=== PATIENT | female | born 1995 | race Caucasian/White ===

== ENCOUNTER 2018-07-11 12:34 | Emergency (ER) | payer OTHER ==
[~2018-07-11] VITALS: Ht 137.2 cm; Wt 36.7 kg
[2018-07-11] MEDS ORDERED: ZANTAC 7575 MG (13:21)
== END 2018-07-11 16:39 | disposition home or self-care (01) ==
LOC: ER 12:34
DX: O20.0 Threatened abortion (principal)

== ENCOUNTER 2018-11-22 08:02 | Emergency (ER) | payer OTHER ==
[~2018-11-22] VITALS: Ht 121.9 cm; Wt 39.9 kg
[~2018-11-22 08:02] MED LIST: ZANTAC 7575 MG
== END 2018-11-22 12:28 | disposition home or self-care (01) ==
LOC: ER 08:02
DX: B34.9 Viral infection, unspecified (principal); N39.0 Urinary tract infection, site not specified

== ENCOUNTER 2019-01-23 13:47 | Outpatient (CLI) | payer OTHER | END 2019-01-23 18:34 | disposition home or self-care (01) | LOC: OBS/DEL 13:47 | DX: O47.1 False labor at or after 37 completed weeks of gestation (principal); Z34.03 Encounter for supervision of normal first pregnancy, third trimester ==

== ENCOUNTER 2019-02-02 09:19 | Outpatient (CLI) | payer OTHER | END 2019-02-02 10:24 | disposition home or self-care (01) | LOC: NST 09:19 | DX: Z34.83 Encounter for supervision of other normal pregnancy, third trimester (principal) ==

== ENCOUNTER 2019-02-06 05:12 | Inpatient (IN) | payer OTHER ==
[~2019-02-06] VITALS: Ht 149.9 cm; Wt 42.2 kg
[2019-02-06] MEDS ORDERED: PRENATAL 19 TA1 EAC1 PO (07:04)
[2019-02-06] MEDS ORDERED: SYNTHROID100 MCG PO (23:04)
[2019-02-06] MEDS ORDERED: VITAMIN D400 UNI2 PO (23:05)
== END 2019-02-08 15:09 | disposition home or self-care (01) | DRG 807 ==
LOC: OB/GYN 05:12 → LDR 05:12 → OB/GYN 02-07 01:30
PROVIDERS: ADMIT Obstetrics & Gynecology
PROC: 10E0XZZ Delivery of Products of Conception, External Approach (ICD-10-PCS; principal; 2019-02-07)
PROC: 4A0HXFZ Measurement of Products of Conception, Cardiac Rhythm, External Approach (ICD-10-PCS; 2019-02-07)
DX: O41.03X0 Oligohydramnios, third trimester, not applicable or unspecified (principal); Z37.0 Single live birth; O36.5930 Maternal care for other known or suspected poor fetal growth, third trimester, not applicable or unspecified; O69.81X0 Labor and delivery complicated by cord around neck, without compression, not applicable or unspecified; Z3A.39 39 weeks gestation of pregnancy

== ENCOUNTER 2021-10-10 19:56 | Emergency (ER) | payer OTHER ==
[~2021-10-10] VITALS: Ht 149.9 cm; Wt 38.6 kg
[~2021-10-10 19:56] MED LIST changes: +PRENATAL 19 TA1 EAC1 PO; +SYNTHROID100 MCG PO; +VITAMIN D400 UNI2 PO
[2021-10-11] MEDS ORDERED: KETO10TA2 PO (03:05)
== END 2021-10-11 03:21 ==
LOC: ER 19:56
DX: N83.201 Unspecified ovarian cyst, right side (principal)

== ENCOUNTER 2022-01-27 16:37 | Emergency (ER) | payer OTHER ==
[~2022-01-27] VITALS: Ht 149.9 cm; Wt 36.3 kg
[~2022-01-27 16:37] MED LIST changes: +KETO10TA2 PO
[2022-01-27] MEDS ORDERED: ZANTAC (17:32)
== END 2022-01-27 22:32 | disposition home or self-care (01) ==
LOC: ER 16:37
DX: K52.89 Other specified noninfective gastroenteritis and colitis (principal)

== ENCOUNTER 2022-05-26 08:39 | Emergency (ER) | payer OTHER ==
[~2022-05-26] VITALS: Ht 149.9 cm; Wt 36.3 kg
[~2022-05-26 08:39] MED LIST changes: +DICY20TA; +OMEPRAZOLE20 MG PO; +PEPCID20 MG PO; +ZANTAC
== END 2022-05-26 13:13 ==
LOC: ER 08:39
DX: U07.1 COVID-19 (principal)

== ENCOUNTER 2022-08-06 11:39 | Emergency (ER) | payer OTHER ==
[~2022-08-06] VITALS: Ht 149.9 cm; Wt 39.0 kg
== END 2022-08-06 16:28 | disposition home or self-care (01) ==
LOC: ER 11:39
DX: O20.9 Hemorrhage in early pregnancy, unspecified (principal); Z3A.12 12 weeks gestation of pregnancy; R10.2 Pelvic and perineal pain

== ENCOUNTER 2022-10-23 20:13 | Emergency (ER) | payer OTHER ==
[~2022-10-23] VITALS: Ht 149.9 cm; Wt 39.5 kg
== END 2022-10-24 00:10 | disposition home or self-care (01) ==
LOC: ER 20:13
DX: N83.292 Other ovarian cyst, left side (principal); R10.2 Pelvic and perineal pain

== ENCOUNTER 2023-02-14 20:36 | Emergency (ER) | payer OTHER ==
[~2023-02-14] VITALS: Ht 149.9 cm; Wt 39.0 kg
== END 2023-02-15 00:43 | disposition home or self-care (01) ==
LOC: ER 20:36
DX: R30.0 Dysuria (principal)

== ENCOUNTER 2023-04-18 10:00 | Emergency (ER) | payer OTHER ==
[~2023-04-18] VITALS: Ht 149.9 cm; Wt 39.0 kg
== END 2023-04-18 11:43 | disposition home or self-care (01) ==
LOC: ER 10:00
DX: R53.81 Other malaise (principal)

== ENCOUNTER 2023-05-27 10:49 | Emergency (ER) | payer OTHER ==
[~2023-05-27] VITALS: Ht 157.5 cm; Wt 54.4 kg
[2023-05-27] MEDS ORDERED: ZYRTEC10 MG PO ×2 (14:06→14:10)
[2023-05-27] MEDS ORDERED: SINGULAIR10 MG PO ×2 (14:06→14:10)
[2023-05-27] MEDS ORDERED: AYR SALINE50 ML NASAL (14:07)
[2023-05-27] MEDS ORDERED: MUCINEX D ER 61 EACH PO ×2 (14:08→14:10)
[2023-05-27] MEDS ORDERED: AMOX1TAB5 PO ×2 (14:09→14:10)
== END 2023-05-27 14:24 | disposition home or self-care (01) ==
LOC: ER 10:50
DX: J06.9 Acute upper respiratory infection, unspecified (principal)

== ENCOUNTER 2023-06-05 09:06 | Emergency (ER) | payer OTHER ==
[~2023-06-05] VITALS: Ht 149.9 cm; Wt 38.6 kg
[~2023-06-05 09:06] MED LIST changes: +AMOX1TAB5 PO; +AYR SALINE50 ML NASAL; +MUCINEX D ER 61 EACH PO; +SINGULAIR10 MG PO; +ZYRTEC10 MG PO
[2023-06-05 10:32] LABS: HEMATOCRIT 37.4 % (36.0-45.00); MEAN CELL VOLUME 89.1 fL (80.00-100.00); MEAN CORPUSCULAR HEMOGLOBIN 30.9 pg (27.00-32.0); MEAN CORPUSCULAR HGB CONC 34.7 g/dl (32.0-36.0); PLATELET COUNT 290 K/uL (150-450); RED CELL DISTRIBUTION WIDTH 13.6 % (11.5-14.5)
[2023-06-05] MEDS ORDERED: ADULT TUSS100 MG/51 PO (11:44)
[2023-06-05] MEDS ORDERED: ZITHROMAX500 MG PO (11:44)
== END 2023-06-05 12:07 | disposition home or self-care (01) ==
LOC: ER 09:07
PROVIDERS: General Practice
DX: J06.9 Acute upper respiratory infection, unspecified (principal); Z20.822 Contact with and (suspected) exposure to COVID-19

== ENCOUNTER 2023-07-05 09:54 | Emergency (ER) | payer OTHER ==
[~2023-07-05] VITALS: Ht 149.9 cm; Wt 38.6 kg
[~2023-07-05 09:54] MED LIST changes: +ADULT TUSS100 MG/51 PO; +ZITHROMAX500 MG PO
[2023-07-05] MEDS ORDERED: LEVSIN0.125 MG PO (10:40)
[2023-07-05 11:55] LABS: HEMATOCRIT 35.4 % (36.0-45.00); HEMOGLOBIN 12.4 g/dL (12.0-15.00); MEAN CELL VOLUME 88.4 fL (80.00-100.00); MEAN CORPUSCULAR HEMOGLOBIN 31.1 pg (27.00-32.0); MEAN CORPUSCULAR HGB CONC 35.2 g/dl (32.0-36.0); PH,URINE 6.5 (5.0-8.0); PLATELET COUNT 251 K/uL (150-450); RED BLOOD COUNT 4.01 M/uL (4.00-6.00); RED CELL DISTRIBUTION WIDTH 13.8 % (11.5-14.5); URINE APPEARANCE Cloudy; URINE BILIRRUBIN Negative (NEGATIVE); URINE BLOOD Negative; URINE COLOR Yellow; URINE GLUCOSE Negative (NEGATIVE); URINE LEUKOCYTE Moderate; URINE NITRATE Negative; URINE PROTEIN Negative (NEGATIVE); URINE UROBILINOGEN 0.2 E.U./dl
[2023-07-05 11:56] LABS: URINE BACTERIA 2672.2 uL (0.0-1933); URINE RBC 3.1 uL (0.0-20.8); URINE WBC 149.1 uL (0.0-23.2)
[2023-07-05 12:43] LABS: CALCIUM 8.8 mg/dL (8.5-10.1); CREATININE SERUM 0.55 mg/dL (0.55-1.02); GFR 131.61; POTASSIUM 3.86 mEq/L (3.5-5.1)
[2023-07-05 14:40] LABS: URINE MUCUS MODERATE
== END 2023-07-05 14:40 | disposition home or self-care (01) ==
LOC: ER 09:54
PROVIDERS: Emergency Medicine
DX: O21.8 Other vomiting complicating pregnancy (principal); Z3A.08 8 weeks gestation of pregnancy

== ENCOUNTER 2023-08-03 13:00 | Emergency (ER) | payer OTHER ==
[~2023-08-03] VITALS: Ht 149.9 cm; Wt 36.3 kg
[~2023-08-03 13:00] MED LIST changes: +LEVSIN0.125 MG PO
[2023-08-03 15:41] LABS: HEMATOCRIT 32.7 % (36.0-45.00); HEMOGLOBIN 11.6 g/dL (12.0-15.00); MEAN CELL VOLUME 89.4 fL (80.00-100.00); MEAN CORPUSCULAR HEMOGLOBIN 31.7 pg (27.00-32.0); MEAN CORPUSCULAR HGB CONC 35.5 g/dl (32.0-36.0); PLATELET COUNT 239 K/uL (150-450); RED BLOOD COUNT 3.66 M/uL (4.00-6.00); RED CELL DISTRIBUTION WIDTH 13.3 % (11.5-14.5)
[2023-08-03 15:51] LABS: PH,URINE 6.5 (5.0-8.0); URINE APPEARANCE Cloudy; URINE BILIRRUBIN Negative (NEGATIVE); URINE BLOOD Negative; URINE COLOR Yellow; URINE GLUCOSE Negative (NEGATIVE); URINE LEUKOCYTE Moderate; URINE NITRATE Negative; URINE PROTEIN Trace (NEGATIVE); URINE UROBILINOGEN 0.2 E.U./dl
[2023-08-03 15:54] LABS: URINE BACTERIA 2701.2 uL (0.0-1933); URINE EPITHELIAL CELLS 100.4 uL (0.0-38.8); URINE RBC 3.4 uL (0.0-20.8); URINE WBC 177.1 uL (0.0-23.2)
[2023-08-03 17:42] LABS: CALCIUM 8.7 mg/dL (8.5-10.1); CREATININE SERUM 0.4 mg/dL (0.55-1.02); GFR 190.06; POTASSIUM 4.21 mEq/L (3.5-5.1)
[2023-08-03] MEDS ORDERED: DUI500 PO (18:19)
== END 2023-08-03 18:29 | disposition home or self-care (01) ==
LOC: ER 13:00
PROVIDERS: General Practice; Nurse Practitioner Family
DX: O23.41 Unspecified infection of urinary tract in pregnancy, first trimester (principal); N39.0 Urinary tract infection, site not specified; Z3A.12 12 weeks gestation of pregnancy; R53.81 Other malaise; Z20.822 Contact with and (suspected) exposure to COVID-19

== ENCOUNTER 2023-08-13 09:57 | Outpatient (CLI) | payer OTHER ==
[~2023-08-13 09:57] MED LIST changes: +DUI500 PO
== END 2023-08-13 10:01 | disposition home or self-care (01) ==
LOC: PRENATAL 09:57
PROVIDERS: ATTEND Obstetrics & Gynecology Maternal & Fetal Medicine
DX: O36.80X0 Pregnancy with inconclusive fetal viability, not applicable or unspecified (principal); Z36.82 Encounter for antenatal screening for nuchal translucency; Z14.8 Genetic carrier of other disease; Z3A.14 14 weeks gestation of pregnancy

== ENCOUNTER 2023-09-16 14:32 | Outpatient (CLI) | payer OTHER | END 2023-09-16 14:34 | disposition home or self-care (01) | LOC: PRENATAL 14:32 | PROVIDERS: ATTEND Obstetrics & Gynecology Maternal & Fetal Medicine | DX: O35.3XX0 Maternal care for (suspected) damage to fetus from viral disease in mother, not applicable or unspecified (principal); O44.00 Complete placenta previa NOS or without hemorrhage, unspecified trimester; Z3A.19 19 weeks gestation of pregnancy ==

== ENCOUNTER 2024-01-10 12:20 | Outpatient (CLI) | payer OTHER ==
[~2024-01-10 12:20] MED LIST changes: +PRENATAL TABLE1 EAC1 PO; +TYLENOL325 MG PO
[2024-01-10] MEDS ORDERED: AMPICILLIN SODIU1 G1 PO (12:26)
[2024-01-10] MEDS ORDERED: TERBUTALINE SULFATE 1 MG/ML AMPUL SUBCUTANEO ONE (12:30)
[2024-01-10] MEDS ORDERED: RINGERS SOLUTION,LACTATED 1,000 ML IV SCH (12:30)
[2024-01-10 12:49] LABS: PH,URINE 6.5 (5.0-8.0); URINE APPEARANCE Cloudy; URINE BILIRRUBIN Negative (NEGATIVE); URINE BLOOD Negative; URINE COLOR Yellow; URINE GLUCOSE Negative (NEGATIVE); URINE LEUKOCYTE Large; URINE NITRATE Negative; URINE PROTEIN Negative (NEGATIVE)
[2024-01-10 12:50] LABS: URINE BACTERIA 535.3 uL (0.0-1933); URINE EPITHELIAL CELLS 83.4 uL (0.0-38.8); URINE RBC 7.6 uL (0.0-20.8); URINE WBC 197.2 uL (0.0-23.2)
[2024-01-10 13:00] LABS: HEMATOCRIT 31.4 % (36.0-45.00); HEMOGLOBIN 11.1 g/dL (12.0-15.00); MEAN CELL VOLUME 89.1 fL (80.00-100.00); MEAN CORPUSCULAR HEMOGLOBIN 31.5 pg (27.00-32.0); MEAN CORPUSCULAR HGB CONC 35.4 g/dl (32.0-36.0); PLATELET COUNT 272 K/uL (150-450); RED BLOOD COUNT 3.53 M/uL (4.00-6.00); RED CELL DISTRIBUTION WIDTH 13.9 % (11.5-14.5)
[2024-01-10 13:08] LABS: URINE YEAST FEW /hpf
[2024-01-10] MEDS ORDERED: CEFAZOLIN SODIUM 1,000 MG VIAL IV SCH (18:00)
[2024-01-10] MEDS ORDERED: ACETAMINOPHEN 500 MG GEL..CAP PO PRN (21:15)
== END 2024-01-11 00:52 | disposition home or self-care (01) ==
LOC: OBS/DEL 12:20
PROVIDERS: Obstetrics & Gynecology; ATTEND Obstetrics & Gynecology
DX: O26.893 Other specified pregnancy related conditions, third trimester (principal); R10.2 Pelvic and perineal pain; Z3A.34 34 weeks gestation of pregnancy; O26.849 Uterine size-date discrepancy, unspecified trimester; O36.8199 Decreased fetal movements, unspecified trimester, other fetus; O36.8310 Maternal care for abnormalities of the fetal heart rate or rhythm, first trimester, not applicable or unspecified

== ENCOUNTER 2024-01-17 03:01 | Inpatient (IN) | payer OTHER ==
[~2024-01-17] VITALS: Ht 149.9 cm; Wt 2.3 kg
[~2024-01-17 03:01] MED LIST changes: +AMPICILLIN SODIU1 G1 PO
[2024-01-17] MEDS ORDERED: RINGERS SOLUTION,LACTATED 1,000 ML IV SCH ×2 (03:15→08:15)
[2024-01-17 04:11] LABS: HEMATOCRIT 31.8 % (36.0-45.00); MEAN CORPUSCULAR HEMOGLOBIN 30.4 pg (27.00-32.0); MEAN CORPUSCULAR HGB CONC 34.6 g/dl (32.0-36.0); PLATELET COUNT 306 K/uL (150-450); RED BLOOD COUNT 3.62 M/uL (4.00-6.00); RED CELL DISTRIBUTION WIDTH 14.1 % (11.5-14.5)
[2024-01-17] MEDS ORDERED: CEFAZOLIN SODIUM 1,000 MG VIAL IV SCH (04:15)
[2024-01-17 04:35] LABS: INR < 0.93; PARTIAL THROMBOPLASTIN TIME 29.4 SECONDS (22.0-34.0); PROTHROMBIN TIME 9.8 SECONDS (9.0-11.5)
[2024-01-17 04:38] LABS: ALBUMIN 3.1 gm/dL (3.4-5.0); BILIRUBIN TOTAL 0.26 mg/dL (0.3-1.2); CALCIUM 9.4 mg/dL (8.5-10.1); CREATININE SERUM 0.58 mg/dL (0.55-1.02); GFR 123.79; GLOBULINA 3.6 G/DL (2.4-3.5); POTASSIUM 4.67 mEq/L (3.5-5.1); TOTAL PROTEIN 6.7 gm/dL (6.4-8.2)
[2024-01-17] MEDS ORDERED: OXYTOCIN 10 UNITS/ML VIAL IV ONE (05:45)
[2024-01-17] MEDS ORDERED: ERYTHROMYCIN BASE 1 GM TUBE OP ONE (05:45)
[2024-01-17 06:47] LABS: ABG PH 7.291 (7.35-7.45); ABG PO2 16.6 mmHg (80-100); ABG pCO2 52.2 mmHg (35-45)
[2024-01-17 06:48] LABS: BASE EXCESS -2.7 mmol/l; BICARBONATE 24.6 mmol/l (23-25); SaO2 18.1 %; Tco2 26.2 mmol/l; o2 21 %
[2024-01-17] MEDS ORDERED: MORPHINE SULFATE 4 MG/ML CARTRIDGE IV PRN (08:00)
[2024-01-17] MEDS ORDERED: OXYTOCIN 1,000 ML IV SCH (08:15)
[2024-01-17 08:43] LABS: HEMATOCRIT 27.8 % (36.0-45.00); HEMOGLOBIN 9.8 g/dL (12.0-15.00); MEAN CELL VOLUME 87.1 fL (80.00-100.00); MEAN CORPUSCULAR HEMOGLOBIN 30.6 pg (27.00-32.0); MEAN CORPUSCULAR HGB CONC 35.2 g/dl (32.0-36.0); PLATELET COUNT 267 K/uL (150-450)
[2024-01-17] MEDS ORDERED: SIMETHICONE 125 MG CAPSULE PO SCH (09:00)
[2024-01-17] MEDS ORDERED: DOCUSATE SODIUM 100MG CAP PO SCH (09:00)
[2024-01-17] MEDS ORDERED: IBUprofen 800 MG TABLET PO PRN (17:00)
== END 2024-01-20 10:55 | disposition home or self-care (01) | DRG 786 ==
LOC: LDR → OB/GYN 03:01 → LDR 03:01 → OB/GYN 07:01
PROVIDERS: ADMIT Obstetrics & Gynecology; ATTEND Obstetrics & Gynecology
PROC: 4A1HXCZ Monitoring of Products of Conception, Cardiac Rate, External Approach (ICD-10-PCS; 2024-01-17)
PROC: 10D00Z1 Extraction of Products of Conception, Low, Open Approach (ICD-10-PCS; principal; 2024-01-17 07:00)
DX: O77.0 Labor and delivery complicated by meconium in amniotic fluid (principal); O60.14X0 Preterm labor third trimester with preterm delivery third trimester, not applicable or unspecified; O36.8330 Maternal care for abnormalities of the fetal heart rate or rhythm, third trimester, not applicable or unspecified; O75.89 Other specified complications of labor and delivery; O42.013 Preterm premature rupture of membranes, onset of labor within 24 hours of rupture, third trimester; Z3A.36 36 weeks gestation of pregnancy; Z37.0 Single live birth; Z20.822 Contact with and (suspected) exposure to COVID-19

== ENCOUNTER 2024-09-15 08:59 | Emergency (ER) | payer OTHER ==
[~2024-09-15] VITALS: Ht 149.9 cm; Wt 40.8 kg
[2024-09-15] MEDS ORDERED: PANTOPRAZOLE SODIUM 40 MG/VIAL VIAL IV ONE (09:45)
[2024-09-15] MEDS ORDERED: KETOROLAC TROMETHAMINE 30 MG VIAL IU ONE (09:45)
[2024-09-15 10:07] LABS: HEMATOCRIT 36.4 % (36.0-45.00); HEMOGLOBIN 12.7 g/dL (12.0-15.00); MEAN CELL VOLUME 87.6 fL (80.00-100.00); MEAN CORPUSCULAR HEMOGLOBIN 30.7 pg (27.00-32.0); MEAN CORPUSCULAR HGB CONC 35.1 g/dl (32.0-36.0); PLATELET COUNT 251 K/uL (150-450); RED BLOOD COUNT 4.15 M/uL (4.00-6.00); RED CELL DISTRIBUTION WIDTH 13.4 % (11.5-14.5)
[2024-09-15 10:14] LABS: PH,URINE 6.5 (5.0-8.0); URINE APPEARANCE Clear; URINE BILIRRUBIN Negative (NEGATIVE); URINE BLOOD Negative; URINE COLOR Yellow; URINE GLUCOSE Negative (NEGATIVE); URINE KETONE Trace (NEGATIVE); URINE LEUKOCYTE Negative; URINE NITRATE Negative; URINE PROTEIN Negative (NEGATIVE); URINE UROBILINOGEN 0.2 E.U./dl
[2024-09-15 10:16] LABS: URINE EPITHELIAL CELLS 57.8 uL (0.0-38.8); URINE RBC 5.7 uL (0.0-20.8); URINE WBC 12.6 uL (0.0-23.2)
[2024-09-15 10:31] LABS: INR 1.03; PROTHROMBIN TIME 11.2 SECONDS (9.0-11.5)
[2024-09-15 10:37] LABS: ALBUMIN 3.8 gm/dL (3.4-5.0); ALKALINE PHOSPHATASE 45 U/L (50-136); ALT/SGPT 22 U/L (12-78); ANION GAP 7 (10.0-20.0); AST/SGOT 18 U/L (15-37); BLOOD UREA NITROGEN 16 mg/dL (7-18); BUN CREA RATIO 34 (7.0-25.0); CALCIUM 8.7 mg/dL (8.5-10.1); CARBON DIOXIDE 28 mEq/L (21-32); CHLORIDE 109 mmol/L (98-107); CREATININE SERUM 0.47 mg/dL (0.55-1.02); GFR 156.66; GLOBULINA 3.6 G/DL (2.4-3.5); GLUCOSE FASTING 87 mg/dL (65-100); OSMOLALITY SERUM 280 MOSM/KG (275-295); POTASSIUM 4.16 mEq/L (3.5-5.1); SODIUM 140 mmol/L (136-145); TOTAL PROTEIN 7.4 gm/dL (6.4-8.2)
[2024-09-15 10:40] LABS: HCG QUANTITATIVE < 1 mUI/mL (1-3)
[2024-09-15] MEDS ORDERED: PROTONIX40 MG PO (13:59)
[2024-09-15] MEDS ORDERED: DICY20TA PO (13:59)
== END 2024-09-15 14:06 | disposition home or self-care (01) ==
LOC: ER 09:01
PROVIDERS: General Practice
DX: K52.9 Noninfective gastroenteritis and colitis, unspecified (principal); Z91.040 Latex allergy status